=== PATIENT | male | born 1955 | race Caucasian/White ===

== ENCOUNTER 2016-09-22 10:19 | Emergency (ER) | payer BC ==
[2016-09-22] MEDS ORDERED: DUONEB INH ONE ×2 (11:41→11:42)
[2016-09-22] MEDS ORDERED: METHYLPRED SOD SUCC 125 MG/2 ML VIAL ONE (12:24)
== END 2016-09-22 14:12 | disposition home or self-care (01) ==
LOC: ER 10:19
CPT/HCPCS: 36415; 71010; 80053; 82553; 83880; 84484; 85025; 93005; 94640; 96374